=== PATIENT | female | born 1945 | race Caucasian/White ===

== ENCOUNTER → 2016-07-21 08:01 | Outpatient (CLI) | payer MEDICARE, BC, OTHER ==
[2016-02-18 11:51] VITALS: BMI 48.5
[~2016-07-21 08:01] MED LIST: ALDACTONE25 MG PO; ATACAND32 MG PO; BENTYL10 MG PO; BONIVA150 MG PO; CLARINEX-D 11 BOTTLE PO; COREG6.25 MG PO; CYCLOBENZAPRINE10 MG PO; DURAGESIC1 PATCH .1 TD; FLOVENT DI50 MCG/DIS INH; HYDROCODONE-APA1 TAB PO; KLOR-CON M2020 MEQ PO; LASIX40 MG PO; LASIX80 MG PO; LISINOPRIL5 MG PO; MIRAPEX0.25 MG PO; NYSTATIN1 PWD TOPICAL; PREDNISONE20 MG PO; PREMARIN1.25 MG PO; PRILOSEC20 MG PO; SALINE FLUSH10 ML IV; SYNTHROID175 MCG PO; TRICOR145 MG PO; VYTORIN 10-20 M1 TAB PO
== END | disposition home or self-care (01) ==
LOC: D.CT 08:01
DX: R10.31 Right lower quadrant pain (principal)

== ENCOUNTER → 2016-08-07 15:06 | Outpatient (CLI) | payer MEDICARE, BC, OTHER ==
[2016-02-18 11:51] VITALS: BMI 48.5
[2016-08-07 16:00] LABS: ANION GAP 12.8 mmol/L (8-16); BILIRUBIN - TOTAL 0.45 mg/dL (0.2-1.3); CALCIUM 9.1 mg/dL (8.5-10.1); CARBON DIOXIDE 29.3 mmol/L (21.0-32.0); CREATININE - SERUM 1.5 mg/dL (0.6-1.3); POTASSIUM - SERUM 4.1 mmol/L (3.5-5.1); PROTEIN - SERUM 7.3 g/dL (6.4-8.2)
== END | disposition home or self-care (01) ==
LOC: D.LAB 15:06
PROVIDERS: Internal Medicine Gastroenterology
DX: T50.901A Poisoning by unspecified drugs, medicaments and biological substances, accidental (unintentional), initial encounter (principal); R53.83 Other fatigue

== ENCOUNTER → 2016-09-17 17:15 | Outpatient (CLI) | payer MEDICARE, BC, OTHER ==
[2016-02-18 11:51] VITALS: BMI 48.5
== END | disposition home or self-care (01) ==
LOC: D.MAMMO 13:15
DX: Z12.31 Encounter for screening mammogram for malignant neoplasm of breast (principal)

== ENCOUNTER → 2018-03-16 13:45 | Outpatient (CLI) | payer MEDICARE, BC, OTHER ==
[2016-02-18 11:51] VITALS: BMI 48.5
== END | disposition home or self-care (01) ==
LOC: D.RT 13:45
DX: J45.909 Unspecified asthma, uncomplicated (principal)

== ENCOUNTER → 2018-09-15 11:52 | Outpatient (CLI) | payer MEDICARE, BC, OTHER ==
[2016-02-18 11:51] VITALS: BMI 48.5
--- NOTE | ~2018-09-15 | EC ---
PATIENT:FLORENCE CROWDER DATE OF SERVICE: 09/15/18 SEX: F MEDICAL RECORD: [id number] DATE OF : 41 [facility] AGE OF PATIENT: 72 ADMISSION DATE: 09/15/18 REFERRING PHYSICIAN: INTERPRETING PHYSICIAN: JOSUE ARCOS MD ECHOCARDIOGRAM REPORT ECHO CHARGES 4 ECHO COMPLETE Date: 09/15/18 CLINICAL DIAGNOSIS: HTN ECHOCARDIOGRAPHIC MEASUREMENTS (adult normal given) AC root (d.<3.7cm) 3.4 cm LV Septum d (<1.2 cm> 1.2 cm Valve Excursion 1.3 cm LV Septum (systole) 1.6 cm Left Atria (s.<4.0cm> 4.1 cm LVPW d(<1.2cm) 1.5 cm RV (d.<2.3cm) 3.5 cm LVPW (sytole) 1.7 cm LV diastole(<5.6CM) 4.8 cm MV E-F(>70mm/sec) cm LV systole 3.7 cm LVOT Diameter 1.8 cm MV exc.(>10mm) 1.4 cm Est.ejection fraction (50-75%) % DOPPLER: LVIT cm/sec A 120 cm/sec E 95.0 cm/sec LA cm/sec RVSP 17 mmHg LVOT 120 cm/sec AOP1/2T m/s Asc. Ao 189 cm/sec RVOT 110 cm/sec RA cm/sec PA 117 cm/sec AV Gradient Peak 14.24mmHg AV Mean 8.54 mmHg AV Area 2.1 cm MV Gradient Peak 7.86 mmHg MV Mean 3.58 mmHg MV Area cm COMMENTS: Spine Surgeon: Nica PADILLA Powersaw Supervisor: 1 Dr. Arcos TAPE# PACS Pericardial Effusion N DATE OF SERVICE: 09/15/2018 PROCEDURE: Echocardiogram. FINDINGS: 1. Left ventricular chamber size is within normal limits. Left ventricular systolic function is normal. Overall ejection fraction estimated 50% to 55%. 2. Left atrium is enlarged at 4.1 cm. Right atrium and right ventricular chamber sizes are mildly dilated. 3. Valvular structures have normal structure and motion. ECHOCARDIOGRAM REPORT [id number] FLORENCE CROWDER 4. Doppler interrogation reveals mild aortic insufficiency, mild mitral regurgitation, no other valvular insufficiency or stenosis. 5. No evidence of pericardial effusion or left ventricular thrombus. Pulmonary systolic pressure is normal estimated at 17 mmHg. TRANSINT:[id number] Voice Confirmation ID: [id number] DOCUMENT ID: [id number] JOSUE ARCOS MD CC: [id number] DICTATION DATE: 09/15/18 1554 COMPENSATOR: 09/15/18 1613 [facility] [address] [id number]
== END | disposition home or self-care (01) ==
LOC: D.HCCARDIO 11:52
PROVIDERS: ATTEND Internal Medicine Interventional Cardiology
DX: I10 Essential (primary) hypertension (principal)

== ENCOUNTER → 2018-11-12 12:34 | Outpatient (CLI) | payer MEDICARE, BC, OTHER ==
[2016-02-18 11:51] VITALS: BMI 48.5
== END | disposition home or self-care (01) ==
LOC: D.RT 12:34
PROVIDERS: ATTEND Internal Medicine Pulmonary Disease
DX: J45.909 Unspecified asthma, uncomplicated (principal)

== ENCOUNTER → 2019-07-05 15:01 | Outpatient (CLI) | payer MEDICARE, BC, OTHER ==
[2016-02-18 11:51] VITALS: BMI 48.5
== END | disposition home or self-care (01) ==
LOC: D.RAD 15:01
PROVIDERS: ATTEND Pain Medicine Pain Medicine
DX: M54.5 Low back pain (principal); M54.16 Radiculopathy, lumbar region

== ENCOUNTER → 2019-12-26 11:16 | Outpatient (CLI) | payer MEDICARE, BC, OTHER ==
[2016-02-18 11:51] VITALS: BMI 48.5
== END | disposition home or self-care (01) ==
LOC: D.LAB 11:16
PROVIDERS: ATTEND Internal Medicine Pulmonary Disease
DX: Z11.59 Encounter for screening for other viral diseases (principal)

== ENCOUNTER → 2019-12-28 14:31 | Outpatient (CLI) | payer MEDICARE, BC, OTHER ==
[2016-02-18 11:51] VITALS: BMI 48.5
== END | disposition home or self-care (01) ==
LOC: D.RT 14:31
PROVIDERS: ATTEND Internal Medicine Pulmonary Disease
DX: J45.909 Unspecified asthma, uncomplicated (principal)

== ENCOUNTER → 2020-11-02 10:36 | Outpatient (CLI) | payer MEDICARE, OTHER ==
[2016-02-18 11:51] VITALS: BMI 48.5
== END | disposition home or self-care (01) ==
LOC: D.HCCECHO 10:30
PROVIDERS: ATTEND Internal Medicine Cardiovascular Disease
DX: R06.00 Dyspnea, unspecified (principal)